=== PATIENT | female | born 1980 | race Caucasian/White ===

== ENCOUNTER → 2016-06-17 | Outpatient (CLI) | payer OTHER ==
[2016-06-17 07:39] LABS: BASOPHIL % 0.9 % (0-2); PLATELET COUNT 361 x10^3mcL (130-400); RED CELL DISTRIBUTION WIDTH 13.7 % (11.5-14.5)
[2016-06-17 08:00] LABS: ALBUMIN 3.9 g/dL (3.4-5.0); ALKALINE PHOSPHATASE 59 U/L (46-116); ALT/SGPT 25 U/L (14-59); AST/SGOT 14 U/L (15-37); BILIRUBIN TOTAL 0.55 mg/dL (0.20-1.00); CALCIUM 8.9 mg/dL (8.5-10.1); CARBON DIOXIDE 25.5 mmol/L (21-32); CHLORIDE SERUM 105 mmol/L (98-107); CREATININE SERUM 0.7 mg/dL (0.6-1.0); GFR1 > 60 mL/min; GLUCOSE SERUM 97 mg/dL (74-106); HDL CHOLESTEROL 53 mg/dL (40-60); POTASSIUM SERUM 4.2 mmol/L (3.5-5.1); SODIUM SERUM 138 mmol/L (136-145); TOTAL PROTEIN, SERUM 7.6 g/dL (6.4-8.2); TRIGLYCERIDES 119 mg/dL (<150)
[2016-06-17 08:21] LABS: CHOLESTEROL 217 mg/dL (<200); CHOLESTEROL/HDL RATIO 4.1
[2016-06-18 13:07] LABS: VITAMIN D 25-HYDROXY 25.9 ng/mL (30.0-100.0)
== END | disposition home or self-care (01) ==
LOC: LB 06:54
PROVIDERS: Internal Medicine
DX: I10 Essential (primary) hypertension (principal); D64.9 Anemia, unspecified; E78.4 Other hyperlipidemia; E03.9 Hypothyroidism, unspecified; E55.9 Vitamin D deficiency, unspecified; E11.9 Type 2 diabetes mellitus without complications

== ENCOUNTER 2017-02-10 07:57 | Day surgery (SDC) | payer OTHER ==
[~2017-02-10] VITALS: Ht 162.6 cm; Wt 77.1 kg
[2017-02-10 08:41] VITALS: BP 144/75
[2017-02-10 10:29] VITALS: BP 120/76
== END 2017-02-10 11:45 | disposition home or self-care (01) ==
LOC: GI 07:57 → OR 10:30 → GI 11:45
PROVIDERS: Internal Medicine
PROC: 0DBN8ZZ Excision of Sigmoid Colon, Via Natural or Artificial Opening Endoscopic (ICD-10-PCS; principal; 2017-02-10 10:30)
DX: K62.5 Hemorrhage of anus and rectum (principal); D12.5 Benign neoplasm of sigmoid colon; K21.9 Gastro-esophageal reflux disease without esophagitis; K58.9 Irritable bowel syndrome, unspecified
CPT/HCPCS: 45378; J1200; J1610; J2250; J2310; J3010; J3490

== ENCOUNTER → 2017-03-10 | Outpatient (CLI) | payer OTHER | END | disposition home or self-care (01) | LOC: US 08:39 | PROC: BH4CZZZ Ultrasonography of Head and Neck (ICD-10-PCS; principal; 2017-03-10) | DX: R22.0 Localized swelling, mass and lump, head (principal) ==

== ENCOUNTER → 2017-05-25 | Outpatient (CLI) | payer OTHER | END | disposition home or self-care (01) | LOC: US 05-24 09:00 | PROC: BU4CZZZ Ultrasonography of Uterus and Ovaries (ICD-10-PCS; principal; 2017-05-25) | DX: D25.9 Leiomyoma of uterus, unspecified (principal) ==

== ENCOUNTER 2017-06-21 12:55 | Emergency (ER) | payer OTHER ==
[~2017-06-21] VITALS: Ht 162.6 cm; Wt 79.4 kg
[2017-06-21 12:59] VITALS: Ht 162.6 cm; Wt 79.4 kg
[2017-06-21 14:21] VITALS: BP 138/83
== END 2017-06-21 14:21 | disposition home or self-care (01) ==
LOC: ED 12:55
DX: M54.5 Low back pain (principal); Z91.013 Allergy to seafood; Z88.8 Allergy status to other drugs, medicaments and biological substances; V89.2XXA Person injured in unspecified motor-vehicle accident, traffic, initial encounter; Y93.73 Activity, racquet and hand sports; Y92.89 Other specified places as the place of occurrence of the external cause; Y99.8 Other external cause status

== ENCOUNTER → 2017-08-10 | Outpatient (CLI) | payer OTHER ==
[2017-08-10 07:58] LABS: ALBUMIN 3.7 g/dL (3.4-5.0); ALKALINE PHOSPHATASE 67 U/L (46-116); ALT/SGPT 22 U/L (14-59); AST/SGOT 19 U/L (15-37); BILIRUBIN TOTAL 0.41 mg/dL (0.20-1.00); CALCIUM 8.4 mg/dL (8.5-10.1); CARBON DIOXIDE 25.3 mmol/L (21-32); CHLORIDE SERUM 109 mmol/L (98-107); CREATININE SERUM 0.7 mg/dL (0.6-1.0); GFR1 > 60 mL/min; GLUCOSE SERUM 103 mg/dL (74-106); HDL CHOLESTEROL 53 mg/dL (40-60); POTASSIUM SERUM 4.6 mmol/L (3.5-5.1); SODIUM SERUM 143 mmol/L (136-145); TOTAL PROTEIN, SERUM 7.4 g/dL (6.4-8.2); TRIGLYCERIDES 91 mg/dL (<150)
[2017-08-10 07:59] LABS: CHOLESTEROL 228 mg/dL (<200); CHOLESTEROL/HDL RATIO 4.3
[2017-08-10 08:10] LABS: BASOPHIL % 0.7 % (0-2); PLATELET COUNT 328 x10^3mcL (130-400); RED CELL DISTRIBUTION WIDTH 13.9 % (11.5-14.5)
[2017-08-11 04:27] LABS: VITAMIN D 25-HYDROXY 26.3 ng/mL (30.0-100.0)
== END | disposition home or self-care (01) ==
LOC: LB 06:59
DX: D64.9 Anemia, unspecified (principal); E78.4 Other hyperlipidemia; I10 Essential (primary) hypertension; E03.9 Hypothyroidism, unspecified; E55.9 Vitamin D deficiency, unspecified; R73.09 Other abnormal glucose

== ENCOUNTER → 2017-09-22 | Outpatient (CLI) | payer OTHER | END | disposition home or self-care (01) | LOC: LB 11:22 | DX: N39.0 Urinary tract infection, site not specified (principal) ==

== ENCOUNTER → 2018-03-22 | Outpatient (CLI) | payer OTHER | END | disposition home or self-care (01) | LOC: US 03-16 09:00 | PROC: BH4CZZZ Ultrasonography of Head and Neck (ICD-10-PCS; principal; 2018-03-22) | DX: R22.0 Localized swelling, mass and lump, head (principal) | CPT/HCPCS: Q0092 ==

== ENCOUNTER → 2018-05-27 | Outpatient (CLI) | payer OTHER ==
[2018-05-27 07:35] LABS: BASOPHIL % 1.6 % (0-2); PLATELET COUNT 393 x10^3mcL (130-400); RED CELL DISTRIBUTION WIDTH 13.6 % (11.5-14.5)
[2018-05-27 07:45] LABS: ALBUMIN 3.7 g/dL (3.4-5.0); ALKALINE PHOSPHATASE 73 U/L (46-116); ALT/SGPT 29 U/L (14-59); AST/SGOT 18 U/L (15-37); BILIRUBIN TOTAL 0.4 mg/dL (0.20-1.00); CALCIUM 8.8 mg/dL (8.5-10.1); CHLORIDE SERUM 103 mmol/L (98-107); CREATININE SERUM 0.8 mg/dL (0.6-1.0); GFR1 > 60 mL/min; GLUCOSE SERUM 94 mg/dL (74-106); POTASSIUM SERUM 4.2 mmol/L (3.5-5.1); SODIUM SERUM 139 mmol/L (136-145); TOTAL PROTEIN, SERUM 7.9 g/dL (6.4-8.2)
[2018-05-28 10:28] LABS: RAPID PLASMA REAGIN Non Reactive (Non Reactive)
== END | disposition home or self-care (01) ==
LOC: LB 06:43
PROVIDERS: Obstetrics & Gynecology
DX: Z01.419 Encounter for gynecological examination (general) (routine) without abnormal findings (principal)

== ENCOUNTER → 2018-08-16 | Outpatient (CLI) | payer OTHER ==
[2018-08-16 08:07] LABS: BASOPHIL % 0.7 % (0-2); PLATELET COUNT 378 x10^3mcL (130-400); RED CELL DISTRIBUTION WIDTH 13.6 % (11.5-14.5)
[2018-08-16 08:31] LABS: T3 TOTAL 1.17 ng/mL
[2018-08-16 08:39] LABS: FREE T4 0.91 ng/dL (0.76-1.46); T4(THYROXINE) 6.6 ug/dL (4.7-13.3)
[2018-08-16 08:49] LABS: ALBUMIN 3.9 g/dL (3.4-5.0); ALKALINE PHOSPHATASE 60 U/L (46-116); ALT/SGPT 28 U/L (14-59); AST/SGOT 31 U/L (15-37); BILIRUBIN TOTAL 0.56 mg/dL (0.20-1.00); CALCIUM 9.5 mg/dL (8.5-10.1); CREATININE SERUM 0.5 mg/dL (0.6-1.0); GFR1 > 60 mL/min; GLUCOSE SERUM 101 mg/dL (74-106); TOTAL PROTEIN, SERUM 7.8 g/dL (6.4-8.2); TRIGLYCERIDES 141 mg/dL (<150)
[2018-08-16 08:50] LABS: CARBON DIOXIDE 23.3 mmol/L (21-32); CHOLESTEROL 245 mg/dL (<200); HDL CHOLESTEROL 49 mg/dL (40-60)
[2018-08-16 08:57] LABS: CHLORIDE SERUM 103 mmol/L (98-107); POTASSIUM SERUM 4.3 mmol/L (3.5-5.1); SODIUM SERUM 140 mmol/L (136-145)
== END | disposition home or self-care (01) ==
LOC: US 07:20
PROC: BT4JZZZ Ultrasonography of Kidneys and Bladder (ICD-10-PCS; principal; 2018-08-16)
DX: R31.9 Hematuria, unspecified (principal); I10 Essential (primary) hypertension; E55.9 Vitamin D deficiency, unspecified; D64.9 Anemia, unspecified; E00.9 Congenital iodine-deficiency syndrome, unspecified
CPT/HCPCS: 84439

== ENCOUNTER 2018-10-27 06:50 | Emergency (ER) | payer OTHER ==
[~2018-10-27] VITALS: Ht 162.6 cm; Wt 79.4 kg
[2018-10-27 06:57] VITALS: Ht 162.6 cm; Wt 79.4 kg
[2018-10-27 07:41] VITALS: BP 147/78
== END 2018-10-27 07:41 | disposition home or self-care (01) ==
LOC: ED 06:50
DX: N39.0 Urinary tract infection, site not specified (principal); Z91.013 Allergy to seafood; Z88.8 Allergy status to other drugs, medicaments and biological substances

== ENCOUNTER → 2018-12-08 | Outpatient (CLI) | payer OTHER ==
[2018-12-08 08:07] LABS: CHOLESTEROL/HDL RATIO 4.8
== END | disposition home or self-care (01) ==
LOC: LB 07:17
DX: E78.5 Hyperlipidemia, unspecified (principal); E55.9 Vitamin D deficiency, unspecified

== ENCOUNTER → 2019-01-04 | Outpatient (CLI) | payer OTHER ==
[2019-01-05 04:08] LABS: MUMPS AB IGG 58.7 AU/mL (Immune >10.9)
== END | disposition home or self-care (01) ==
LOC: LB 07:02
DX: Z01.84 Encounter for antibody response examination (principal)

== ENCOUNTER → 2019-12-12 | Outpatient (CLI) | payer OTHER ==
[2019-12-12 08:18] LABS: BASOPHIL % 1.1 % (0-2); PLATELET COUNT 375 x10^3mcL (130-400)
[2019-12-12 08:35] LABS: ALKALINE PHOSPHATASE 70 U/L (46-116); ALT/SGPT 36 U/L (14-59); AST/SGOT 19 U/L (15-37); BILIRUBIN TOTAL 0.45 mg/dL (0.20-1.00); CALCIUM 8.7 mg/dL (8.5-10.1); CARBON DIOXIDE 25.7 mmol/L (21-32); CHLORIDE SERUM 103 mmol/L (98-107); CREATININE SERUM 0.8 mg/dL (0.6-1.0); GFR1 > 60 mL/min; GLUCOSE SERUM 96 mg/dL (74-106); HDL CHOLESTEROL 54 mg/dL (40-60); POTASSIUM SERUM 4.1 mmol/L (3.5-5.1); SODIUM SERUM 137 mmol/L (136-145); TOTAL PROTEIN, SERUM 7.9 g/dL (6.4-8.2); TRIGLYCERIDES 166 mg/dL (<150)
[2019-12-12 08:36] LABS: CHOLESTEROL 235 mg/dL (<200); CHOLESTEROL/HDL RATIO 4.4
== END | disposition home or self-care (01) ==
LOC: US 12-11 09:00
PROVIDERS: ATTEND Surgery
PROC: BH4CZZZ Ultrasonography of Head and Neck (ICD-10-PCS; principal; 2019-12-12)
DX: Z00.00 Encounter for general adult medical examination without abnormal findings (principal); R22.0 Localized swelling, mass and lump, head

== ENCOUNTER → 2020-05-23 | Outpatient (CLI) | payer OTHER | END | disposition home or self-care (01) | LOC: MA 08:38 | PROC: BH02ZZZ Plain Radiography of Bilateral Breasts (ICD-10-PCS; principal; 2020-05-23) | DX: Z12.31 Encounter for screening mammogram for malignant neoplasm of breast (principal) | CPT/HCPCS: 77067 ==